=== PATIENT | female | born 1960 | race Caucasian/White ===

== ENCOUNTER 2016-11-14 15:24 | Emergency (ER) | payer BC ==
[2016-11-14 15:35] VITALS: RESP 24; TEMP 96.5
--- NOTE | 2016-11-14 15:55 | PDOC ---
Abdomen/Flank HPI - General Chief Complaint: Abdomen Pain Stated Complaint: Abdominal pain Date Seen by Provider: 11/14/16 Time Seen by Provider: 15:55 Source: POSITIVE: Patient Exam Limitations: POSITIVE: No limitations Nurse's Notes Reviewed & Considered: Yes - History of Present Illness Initial Comments: Patient was in her normal state of health at noon today, she had a cup of coffee and some cake doughnuts, then developed nausea vomiting and abdominal pain. She denies having any diarrhea. Denies any hematuria or dysuria, no rashes, no headache, no dizziness, no rashes, cough or shortness of breath, no chest pain. Body Location Affected: REPORTS: Abdomen Timing: REPORTS: Abrupt Duration: 1-3 hours Severity: Moderate Quality: REPORTS: Cramping, Sharpness, Throbbing Abdominal Pain Onset Location: REPORTS: RUQ, LUQ, Epigastric, Periumbilical Context: REPORTS: None Modifying Factors: improves with: Nothing Associated Symptoms: REPORTS: Nausea, Vomiting Similar Symptoms Previously: No Recent Care Received: REPORTS: Denies Any Prior Injuries Related to Current Complaint?: No - Patient Home Medications Home Medications: Home Medications Hydrocodone Bit/Acetaminophen [Hydrocodone-Apap 5-500 Mg Tab] 1 each PO Q6H PRN PRN 09/13/[address] [Prilosec] 20 mg PO DAILY 09/13/10 Fluoxetine HCl [Prozac] 1 cap PO DAILY cap 07/02/16 Gabapentin 2 cap PO TID cap 07/02/16 Esomeprazole Magnesium [Nexium] 20 mg PO DAILY 11/14/16 - Patient Allergies Allergies/Adverse Reactions: Allergies Allergy/AdvReac Type Severity Reaction Status Date / Time acetaminophen AdvReac NOT Verified 11/14/16 16:04 [From Darvocet-N] APPLICABLE erythromycin lactobionate AdvReac NOT Verified 11/14/16 16:04 [From Erythrocin] APPLICABLE propoxyphene napsylate AdvReac NOT Verified 11/14/16 16:04 [From Darvocet-N] APPLICABLE ROS - Limitations ROS Limitations: No Limitations Constitution: REPORTS: Denies Symptoms Cardiovascular: REPORTS: Denies Cardiac Symptoms Respiratory: REPORTS: Denies Resp Symptoms Neurological: REPORTS: Denies Neuro Symptoms Gastrointestinal: REPORTS: Abdominal Pain, Nausea, Vomitting Endocrine: REPORTS: Denies Symptoms Musculoskeletal: REPORTS: Denies MS Symptoms Genitourinary: REPORTS: Denies Symptoms Eyes: REPORTS: Denies Symptoms ENT: REPORTS: Denies Symptoms Skin: REPORTS: Denies Skin Symptoms Lympathic: REPORTS: Denies Lympathic Symptoms Immunologic: POSITIVE: Denies Symptoms Psychiatric: POSITIVE: Denies Psych Symptoms Abdominal/Flank Pain PE - General Appearance General Appearance: POSITIVE: Alert, Cooperative, No Evidence of Trauma, Anxious , Moderate Distress - HEENT HEENT: POSITIVE: Head Inspection Nml, Eyes Inspection Nml, Ears Inspection Nml, Nose Inspection Nml, PERRL, EOMI - Neck Neck: POSITIVE: Normal Inspection, No Apparent Injury - Respiratory Respiratory: POSITIVE: No Respiratory Distress, Breath Sounds Normal, Chest Non- Tender - Cardiovascular Cardiovascular: POSITIVE: Regular Rate and Rhythm, Heart Sounds Normal - Chest Chest: POSITIVE: Non Tender - Abdomen Abdomen: Soft: (All Quadrants), Normal Bowel Sounds: (All Quadrants), No Splenomegaly: (All Quadrants), No Hepatomegaly: (All Quadrants), Tenderness Noted: (All Quadrants) - Back Back: POSITIVE: Normal Inspection - Skin Skin: POSITIVE: Intact, Normal For Race, Warm, Dry, No Rash - Extremities Extremity: Non-Tender: (All Extremities), Normal ROM: (All Extremities), Normal Inspection: (All Extremities) - Neurological Neurological: POSITIVE: Affect Apporpriate, Oriented X3 - Psychological Psychiatric: POSITIVE: Affect Appropriate, Mood Appropriate Abdomen Progress - Results Reviewed by me Xrays/CTs/US Reviewed by me: Yes Discussed with Radiologist: Yes Lab Results Reviewed: Yes Lab Results:: Laboratory Results 11/14/16 11/14/16 11/14/16 Range/Units 15:55 17:20 17:22 WBC 10.04 (4.8-10.8) 10^3/uL RBC 4.70 (4.20-5.40) 10^6/uL Hgb 14.4 (12.0-16.0) g/dL Hct 43.0 (37.0-47.0) % MCV 91.5 (81-99) FL MCH 30.6 (27-31) PG MCHC 33.5 (33-37) g/dL RDW Std Deviation 40.8 (39-50) fL RDW Coeff of Nica 12.4 (11.5-14.5) % Plt Count 291 (140-350) 10*3/uL MPV 9.7 (7.4-12.2) FL Immature Gran % (Auto) 0.1 (0-5) % Neut % (Auto) 81.0 H (50-80) % Lymph % (Auto) 14.4 (10-50) % [place] % (Auto) 4.3 L (5-15) % Eos % (Auto) 0.1 (0-8) % Baso % (Auto) 0.1 (0-1) % Immature Gran # (Auto) 0.01 10*3/UL Neut # (Auto) 8.13 10*3/UL Lymph # (Auto) 1.45 10*3/uL [place] # (Auto) 0.43 (0.3-0.8) 10*3/UL Eos # (Auto) 0.01 10*3/UL Baso # (Auto) 0.01 10*3/UL WBC Morphology Comment Normal morphology (NORM) Plt Morphology Comment Normal morphology (NORM) RBC Morph Comment Normal morphology (NORM) VBG pH 7.37 (7.32-7.42) VBG pCO2 37 L (45-55) mmHg VBG HCO3 21 L (22-26) mmol/L VBG Base Excess -4 L (-2-2) MMOL/L Sodium 142 (135-145) meq/L Potassium 3.7 L (3.8-5.2) meq/L Chloride 102 (98-112) meq/L Carbon Dioxide 24 (23-33) meq/L Anion Gap 16 (5-20) BUN 10 (7-22) mg/dL Creatinine 0.7 (0.50-1.20) mg/dL Estimated GFR > 60 (>60 ml/min/1.73m(2)) BUN/Creatinine Ratio 14.28 (6-20) Glucose 108 (78-110) mg/dL Calculated Osmolality 293.0 H (267-292) mOsm/kg Lactic Acid 0.6 L (0.70-2.10) MMOL/L Calcium 9.8 (8.7-10.7) mg/dL Magnesium 1.8 (1.6-2.4) mg/dL Total Bilirubin 1.3 H (0.3-1.2) mg/dL AST 32 (8-39) IU/L ALT 28 (9-52) IU/L Alkaline Phosphatase 92 (38-126) IU/L Total Protein 8.0 (6.1-8.0) g/dL Albumin 4.9 H (3.5-4.8) g/dL Globulin 3.1 (2.50-4.10) g/dL Albumin/Globulin Ratio 1.50 (1.3-2.0) mg/g Ur Collection Type Urine Color Urine Clarity (CLEAR) Urine pH (5.0-8.5) Ur Specific Wade (1.005-1.030) Urine Protein (NEG) mg/dl Urine Glucose (UA) (NEG) mg/dL Urine Ketones (NEG) Urine Occult Blood (NEG) Urine Nitrate (NEG) Urine Bilirubin (NEG) Urine Urobilinogen (0.2) EU/dL Ur Leukocyte Esterase (NEG) Urine RBC (NONE) /hpf Urine WBC (NONE) Ur Squamous Epith Cells (NONE) Ur Renal Epithelial Cell (NONE) Urine Crystals Urine Bacteria (NONE) Urine Casts (NONE) Urine Mucus (NONE) Urine Trichomonas (NONE) Urine Yeast (NONE) Ur Culture Indicated? 11/14/16 Range/Units 17:45 WBC (4.8-10.8) 10^3/uL RBC (4.20-5.40) 10^6/uL Hgb (12.0-16.0) g/dL Hct (37.0-47.0) % MCV (81-99) FL MCH (27-31) PG MCHC (33-37) g/dL RDW Std Deviation (39-50) fL RDW Coeff of Nica (11.5-14.5) % Plt Count (140-350) 10*3/uL MPV (7.4-12.2) FL Immature Gran % (Auto) (0-5) % Neut % (Auto) (50-80) % Lymph % (Auto) (10-50) % [place] % (Auto) (5-15) % Eos % (Auto) (0-8) % Baso % (Auto) (0-1) % Immature Gran # (Auto) 10*3/UL Neut # (Auto) 10*3/UL Lymph # (Auto) 10*3/uL [place] # (Auto) (0.3-0.8) 10*3/UL Eos # (Auto) 10*3/UL Baso # (Auto) 10*3/UL WBC Morphology Comment (NORM) Plt Morphology Comment (NORM) RBC Morph Comment (NORM) VBG pH (7.32-7.42) VBG pCO2 (45-55) mmHg VBG HCO3 (22-26) mmol/L VBG Base Excess (-2-2) MMOL/L Sodium (135-145) meq/L Potassium (3.8-5.2) meq/L Chloride (98-112) meq/L Carbon Dioxide (23-33) meq/L Anion Gap (5-20) BUN (7-22) mg/dL Creatinine (0.50-1.20) mg/dL Estimated GFR (>60 ml/min/1.73m(2)) BUN/Creatinine Ratio (6-20) Glucose (78-110) mg/dL Calculated Osmolality (267-292) mOsm/kg Lactic Acid (0.70-2.10) MMOL/L Calcium (8.7-10.7) mg/dL Magnesium (1.6-2.4) mg/dL Total Bilirubin (0.3-1.2) mg/dL AST (8-39) IU/L ALT (9-52) IU/L Alkaline Phosphatase (38-126) IU/L Total Protein (6.1-8.0) g/dL Albumin (3.5-4.8) g/dL Globulin (2.50-4.10) g/dL Albumin/Globulin Ratio (1.3-2.0) mg/g Ur Collection Type Clean catch urine Urine Color Yellow Urine Clarity Clear (CLEAR) Urine pH 7.5 (5.0-8.5) Ur Specific Wade 1.015 (1.005-1.030) Urine Protein Negative (NEG) mg/dl Urine Glucose (UA) Negative (NEG) mg/dL Urine Ketones Negative (NEG) Urine Occult Blood Trace-intact H (NEG) Urine Nitrate Negative (NEG) Urine Bilirubin Negative (NEG) Urine Urobilinogen 0.2 (0.2) EU/dL Ur Leukocyte Esterase Negative (NEG) Urine RBC 0-2 (NONE) /hpf Urine WBC None (NONE) Ur Squamous Epith Cells Few (NONE) Ur Renal Epithelial Cell None (NONE) Urine Crystals None Urine Bacteria None (NONE) Urine Casts None (NONE) Urine Mucus None (NONE) Urine Trichomonas None (NONE) Urine Yeast None (NONE) Ur Culture Indicated? Culture not set - Patient's Progress Pain Medication Addressed: POSITIVE: Yes Re-examine Time: 18:06 (significantly improved) Status: POSITIVE: Improved MDM / ED Course: Patient brought to the emergency Department, examined, and IV started, blood drawn and sent to the lab for studies, radiographic studies obtained. Patient received a liter of normal saline, morphine sulfate, Dilaudid, Zofran, Ativan, and she significantly improved. Laboratory findings: CBC shows a normal white count, urinalysis is negative. Radiological findings: No acute abnormalities on CT scan of abdomen and pelvis. Assessment: Nausea and vomiting with abdominal pain. Plan: Discharged to home continue with her home pain medications, clear liquids for 24 hours and advance diet slowly. - Consult Counseled: POSITIVE: Patient, Family, RE: Lab Results, RE: Radiology Results, RE : DX Patient Care Time - Estimated PCT Patient Care Time (In Minutes): 30 Vital Signs - Recent Vital Signs Vital Signs: Vital Signs (Last 8 hours) Temp Pulse Resp BP Pulse Ox 11/14/16 15:33 96.5 F L 135 H 24 156/96 96 11/14/16 15:32 96.5 F L 135 H 24 156/96 96 - VS Reviewed Vital Signs Reviewed: Yes Discharge Clinical Impression: Abdominal pain Discharge Disposition: Discharged to Home Condition: Fair Patient Instructions Given at Discharge: Acute Nausea and Vomiting (ED), Acute Abdominal Pain (ED)
[2016-11-14] MEDS ORDERED: MORPHINE SULFATE 4 MG/1 ML IVP ONE (15:58)
[2016-11-14] MEDS ORDERED: Sodium Chloride 0.9% 1,000 ML PRIMARY IV ONE (15:58)
[2016-11-14] MEDS ORDERED: ONDANSETRON 4 MG/2 ML VIAL IVP ONE (15:58)
[2016-11-14 16:04] LABS: BASOPHILS # (AUTO) 0.01 10*3/UL; BASOPHILS % (AUTO) 0.1 % (0-1); EOSINOPHILS % (AUTO) 0.1 % (0-8); HEMOGLOBIN 14.4 g/dL (12.0-16.0); IMM GRAN % (AUTO) 0.1 % (0-5); IMM GRAN# (AUTO) 0.01 10*3/UL; LYMPHOCYTES # (AUTO) 1.45 10*3/uL; LYMPHOCYTES % (AUTO) 14.4 % (10-50); MEAN CORPUSCULAR HEMOGLOBIN 30.6 PG (27-31); MEAN CORPUSCULAR HGB CONC 33.5 g/dL (33-37); MEAN PLATELET VOLUME 9.7 FL (7.4-12.2); MONOCYTES # (AUTO) 0.43 10*3/UL (0.3-0.8); MONOCYTES % (AUTO) 4.3 % (5-15); NEUTROPHILS # (AUTO) 8.13 10*3/UL; RDW COEFFICIENT OF VARIATION 12.4 % (11.5-14.5); WHITE BLOOD COUNT 10.04 10^3/uL (4.8-10.8)
[2016-11-14 16:05] LABS: PLATELET MORPHOLOGY COMMENT NORMAL MORPHOLOGY (NORM)
[2016-11-14 16:10] LABS: ASPARTATE AMINO TRANSFERASE 32 IU/L (8-39); BILIRUBIN,TOTAL 1.3 mg/dL (0.3-1.2); BLOOD UREA NITROGEN 10 mg/dL (7-22); BUN/CREATININE RATIO 14.28 (6-20); CALCIUM 9.8 mg/dL (8.7-10.7); CHLORIDE 102 meq/L (98-112); CREATININE 0.7 mg/dL (0.50-1.20); EST GLOMERULAR FILTRATION > 60 (>60 ml/min/1.73m(2)); GLUCOSE 108 mg/dL (78-110); MAGNESIUM 1.8 mg/dL (1.6-2.4); POTASSIUM 3.7 meq/L (3.8-5.2); SODIUM 142 meq/L (135-145)
[2016-11-14] MEDS ORDERED: LORazepam 2 MG/1 ML VIAL IVP ONE (16:15)
[2016-11-14] MEDS ORDERED: HYDROmorphone 2 MG/1 ML IVP ONE (16:33)
--- NOTE | 2016-11-14 17:34 | DI ---
CT ABDOMEN SCAN WITH IV CONTRAST, 11/14/2016 3:58 PM : Clinical History: Abdominal pain. Previous Exam: None at this facility. Scans are performed from the lower lung bases through the liver and kidneys with IV contrast. 70 ml o f Isovue 300 was injected IV. There is atelectasis at both lung bases. The liver is normal. The gallbladder is grossly normal. Ther e is no abnormality of the spleen, pancreas, and right adrenal gland. There is a mass in the left adr enal gland that is higher than fat density and measures 24 x 19 x 28 mm in the AP, transverse, and lo ngitudinal dimensions. Both kidneys are normal in size, shape, position and contour. There is no hydr onephrosis or hydroureter. No renal or ureteral calculi are present. There are no abnormal retrocrura l or periaortic nodes. No ascites is present. READIN. There is a left adrenal gland mass that is greater than fat tissue density (30-50 CT [place]oun[place] u nits) and measures 24 x 19 x 28 mm. This can be evaluated with an MRI scan of the abdomen without and with IV contrast when the patient has recovered from her acute illness. 2. The remainder of the examination is normal. CT PELVIS SCAN WITH IV CONTRAST, 11/14/2016 3:58 PM: Clinical History: See above. Previous Exam: None at this facility. Scans are performed from just superior to the umbilicus to the symphysis pubis with IV contrast. This is the same bolus of contrast used for the CT scans of the abdomen. Scans through the lower abdomen and pelvis show no masses or abnormal fluid collections. There is no adenopathy. The appendix is normal. The small bowel, terminal ileum, and ileocecal valve are normal. The colon is also normal. There are no hernias. The patient is status post hysterectomy. Neither ovar y is identified with certainty. READING: Normal CT scan of the pelvis.
[2016-11-14 17:49] LABS: BILIRUBIN,URINE NEGATIVE (NEG); CLARITY,URINE CLEAR (CLEAR); GLUCOSE, URINE (UA) NEGATIVE (NEG); LEUKOCYTE ESTERASE ,URINE NEGATIVE (NEG); NITRATE,URINE NEGATIVE (NEG); OCCULT BLOOD,URINE Trace-intact (NEG); PH,URINE 7.5 (5.0-8.5); PROTEIN,URINE NEGATIVE (NEG); UROBILINOGEN,URINE 0.2 EU/dL (0.2)
[2016-11-14 17:53] LABS: URINE SAMPLE TYPE CLEAN CATCH URINE
[2016-11-14 17:54] LABS: RBC,URINE 0-2 /hpf; SQUAMOUS EPITHELIAL CELL,UR FEW
== END 2016-11-14 18:16 | disposition home or self-care (01) ==
LOC: ER 15:24
DX: R10.13 Epigastric pain (principal); R11.2 Nausea with vomiting, unspecified
CPT/HCPCS: 36415; 74177; 80053; 81001; 81003; 82803; 83605; 83735; 85025; 96361; 96374; 96375; 99283; 99284; J1170; J2060; J2270; J2405; J7030